=== PATIENT | female | born 1960 | race Caucasian/White ===

== ENCOUNTER 2022-07-26 15:43 | Outpatient (REF) | payer OTHER, SELFPAY | END 2022-07-26 15:44 | disposition home or self-care (01) | LOC: HO.LNP 15:43 | PROVIDERS: Visit Provider Otolaryngology | DX: L08.9 Local infection of the skin and subcutaneous tissue, unspecified (principal) | CPT/HCPCS: 87070; 87077; 87186; 87205 ==